=== PATIENT | male | born 1995 | race Native Hawaiian/Other Pacific Islander ===

== ENCOUNTER 2017-07-25 22:40 | Emergency (ER) | payer OTHER ==
[~2017-07-25] VITALS: Ht 180.3 cm; Wt 63.5 kg
[2017-07-26 00:32] VITALS: BP 121/70; TEMP 97.8
== END 2017-07-26 00:32 | disposition home or self-care (01) ==
LOC: ED 22:40
DX: K52.9 Noninfective gastroenteritis and colitis, unspecified (principal)
CPT/HCPCS: 99282

== ENCOUNTER 2017-10-25 00:59 | Emergency (ER) | payer OTHER ==
[~2017-10-25] VITALS: Ht 177.8 cm; Wt 63.5 kg
[2017-10-25 01:20] VITALS: BP 109/63; TEMP 98.3
== END 2017-10-25 03:03 | disposition home or self-care (01) ==
LOC: ED 00:59
DX: R53.1 Weakness (principal)
CPT/HCPCS: 99281

== ENCOUNTER 2021-01-08 01:45 | Emergency (ER) | payer OTHER ==
[2021-01-16 11:54] LABS: PLATELET COUNT 272 K/uL (142-355)
[2021-01-16 11:56] LABS: POTASSIUM 3.2 mmol/L (3.6-5.2); SODIUM 141 mmol/L (136-145)
== END 2021-01-08 03:40 | disposition home or self-care (01) ==
LOC: ED 01:45
PROVIDERS: Hospitalist
DX: R55 Syncope and collapse (principal); I49.8 Other specified cardiac arrhythmias
CPT/HCPCS: 36415; 80053; 80320; 81000; 82550; 82553; 84484; 85027; 93005; 96360; 96375; 99284; J2405

== ENCOUNTER 2021-11-22 12:21 | Outpatient (CLI) | payer BC | END 2021-11-22 19:04 | disposition home or self-care (01) | LOC: RAD 12:21 | PROVIDERS: ATTEND Orthopaedic Surgery | DX: M25.561 Pain in right knee (principal); M25.562 Pain in left knee ==